=== PATIENT | female | born 1985 | race African-American/Black ===

== ENCOUNTER 2022-08-23 08:43 | Emergency (ER) | payer OTHER, MEDICAID, SELFPAY ==
[2022-08-23] VITALS (7 sets, daily range): BP systolic 113–131; BP diastolic 67–91; PULSE 84–103; RESP 16–18; TEMP 36.8–37.4; O2SAT 100; BMI 26.6
--- NOTE | ~2022-08-23 | US_ITS ---
EXAMINATION: US OBSTETRICAL ULTRASOUND CLINICAL INFORMATION: Abdominal cramping COMPARISON: None available.. LMP: Unknown. Gestational age by maternal dates is . Estimated date of delivery by maternal dates is . TECHNIQUE: First trimester transabdominal OB ultrasound FINDINGS: There is a single intrauterine gestational sac with visible yolk sac, embryo/fetus, and cardiac activity. There is no significant subchorionic hemorrhage or hematoma. HR: 138 beats per minute. CRL (crown rump length): 0.77 cm (6 weeks 5 days +/- 4 days). CALVIN (estimated date of delivery): 04/13/2023 +/- 4 days. MATERNAL ADNEXA: The right maternal ovary not seen. The left maternal ovary measures 2.8 x 2.2 x 1.5 cm. There is a 1 x 1.2 cm left ovarian cyst. There is no significant maternal adnexal mass. No maternal pelvic ascites. US/US OB <= 14 weeks fetus IMPRESSION: 1. Single intrauterine gestation with ultrasound gestational age of 6 weeks 5 days +/- 4 days. 2. Estimated date of delivery is 04/13/2023 +/- 4 days. 3. No maternal adnexal mass or pelvic ascites.
--- NOTE | 2022-08-23 09:02 | ED_ITS ---
HPI - Abdominal Pain General Chief Complaint: Abdominal Pain Stated Complaint: Vomiting/Dizziness Time Seen by Provider: 08/23/22 08:55 Source: patient and old records reviewed Mode of arrival: ambulatory History of Present Illness HPI narrative: 37-year-old female with a past medical history appendectomy, cholecystectomy, presenting to the ED complaining of intermittent lower abdominal cramping, bloating, nausea, nonbloody emesis, and lightheadedness/dizziness x 5 days. Also reports mild headache and sinus pressure. LMP 07/17. Denies fever, chills, diarrhea, suspicious food intake, recent travel, sick contacts, dysuria/hematuria, CP/SOB MD elicited complaint: abdominal pain Related Data Home Medications Medication Instructions Recorded Confirmed ondansetron HCl 4 mg tablet 4 mg PO Q6-8H PRN nausea 08/23/22 08/23/22 Previous Rx's Medication Instructions Recorded doxylamine 10 mg-pyridoxine (vit 1 tab PO BID 10 days #20 tabs 08/23/22 B6) 10 mg tablet,delayed release Allergies Allergy/AdvReac Type Severity Reaction Status Date / Time Penicillins Allergy Hives Verified 08/23/22 08:55 tramadol Allergy Hives Verified 08/23/22 08:55 Review of Systems Review of Systems Constitutional: No Fever, No Chills, No Fatigue, No Malaise ENT/Mouth: No Ear Pain, No sore throat, No Rhinorrhea, No Swallowing Difficulty, +sinus pressure Eyes: No Eye Pain, No Swelling, No Redness, No Vision Changes Cardiovascular: No Chest Pain, No SOB, No Edema, No Palpitations Respiratory: No Cough, No Sputum, No Dyspnea Gastrointestinal: + Nausea, + Vomiting, No Diarrhea, No Constipation, + Abdominal cramping Genitourinary: No irregular bleeding, No Dysuria, No Urinary Frequency, No Hematuria, No Urinary Incontinence/retention, No Flank Pain Musculoskeletal: No joint pain, No Myalgias, No Joint Swelling Skin: No Skin Lesions, No rash Neuro: No Weakness, No Loss of Consciousness, + lightheaded/ Dizziness, + Headache Yes all other systems are reviewed and are negative Constitutional: Reports as per HPI Denies Abnormal speech present PMFSH Past Medical History Attestation statement: The following information was validated with the patient. Social History Social History Alcohol intake: never Smoked in Last 30 Days: No Use of substances other than those prescribed or required for medical reasons: No Advance Directives: No Advance Directives Information Provided: Yes Patient : No Physical Exam ED Vital Signs: Vital Signs - 24 hr 08/23/22 08:55 08/23/22 09:23 08/23/22 09:56 Temperature 98.2 F 99.4 F Pulse Rate 103 H 95 84 Respiratory Rate 18 16 Blood Pressure 129/91 H 131/83 128/83 Pulse Oximetry 100 100 Oxygen Delivery Method Room Air Room Air 08/23/22 09:59 08/23/22 10:01 08/23/22 11:56 Temperature Pulse Rate 90 100 93 Respiratory Rate 18 Blood Pressure 130/83 123/90 H 126/80 Pulse Oximetry 100 Oxygen Delivery Method Room Air 08/23/22 14:42 Temperature 99.2 F Pulse Rate 98 Respiratory Rate 16 Blood Pressure 113/67 Pulse Oximetry 100 Oxygen Delivery Method Room Air BMI result Body Mass Index 26.6 Const General: cooperative, healthy appearing and no acute distress Orientation/consciousness: patient oriented x3 Limitations: no limitations HENMT Head: Yes normal to inspection and Yes atraumatic Ears: hearing grossly normal bilaterally General nose exam: Normal external nose present Face and sinus: Yes normal facial exam Eyes General: appearance normal, both eyes and all related structures EOM: EOMs intact bilaterally Neck Neck: Yes normal visual inspection and Yes no meningeal signs Resp Effort & Inspection: normal respiratory effort and no respiratory distress Auscultation: clear to auscultation bilaterally Cardio Rate: regular rate Heart sounds: S1 normal heart sound present and S2 normal heart sound present GI Inspection: Yes normal to inspection Palpation (GI): Soft to palpation, nontender, no guarding and not rigid General: Yes no CVA tenderness Back/Spine/Pelvis Back: no CVA tenderness Skin Rashes: no rashes Wounds: no wounds Neuro General: patient oriented x3, tone normal, moves all extremities, no meningeal signs, no focal motor deficits and CN's II-XI intact bilaterally Cranial nerves: Yes CN's II-XII intact bilaterally and Yes Bilaterally intact EOM present Cognition (Neuro): normal cognition Speech: No Abnormal speech present Gait exam (Neuro): Normal gait present Motor exam (neuro): 5/5 motor strength present throughout Extrem General: Yes normal to inspection Course Course Course Narrative: -1217--no leukocytosis. Labs otherwise reassuring. Beta quant 58,013 > will obtain OB ultrasound >> patient continues to deny vaginal bleeding/discharge -COVID and influenza negative US OB <= 14 weeks fetus IMPRESSION: 1. Single intrauterine gestation with ultrasound gestational age of? 6 weeks 5 days +/- 4 days. 2. Estimated date of delivery is 04/13/2023 +/- 4 days. 3. No maternal adnexal mass or pelvic ascites. >> results discussed with patient, tolerating p.o. crackers and apple juice in the ED without nausea or vomiting. Has an OBGYN to follow-up with. Results discussed with patient including worrisome signs and symptoms and strict return precautions, and when to return to the emergency department. They verbalized understanding and feel safe for discharge at this time. Medical Decision Making Medical Decision Making MDM Narrative: 37-year-old female with a past medical history appendectomy, cholecystectomy, presenting to the ED complaining of intermittent lower abdominal cramping, bloating, nausea, nonbloody emesis, and lightheadedness/dizziness x 5 days. On exam mildly tachycardic, NAD, nontoxic appearing, abdomen soft/nontender, no focal neuro deficits. Concern for gastroenteritis vs vs metabolic abnormalities. Lower suspicion for ovarian torsion, appendicitis/diverticulitis or SBO Plan: EKG, labs, UA, COVID/flu, IVF, orthostatics Please refer to course for remaining clinical decision making, interpretation of labs/imaging results, and discussions with consultants and/or family members. Differential Diagnosis Differential Diagnoses: The differential diagnosis associated with the presentation includes As above Admission/Observation Consideration of admission/observation: Escalation of care including admission/observation considered Lab Data [facility] Lab Attestation statement: I reviewed the patient's lab results. 08/23/22 09:45 08/23/22 09:45 Labs: Lab Results 08/23/22 08/23/22 08/23/22 Range/Units 09:45 09:45 09:45 WBC 5.2 (4.8-10.8) X10*3/uL RBC 3.96 L (4.20-5.50) X10*6/uL Hgb 12.9 (12.0-16.0) g/dl Hct 37.3 (37.0-47.0) % MCV 94.2 (80.0-98.0) fL MCH 32.6 (27.0-33.0) pg MCHC 34.6 (31.0-35.0) g/dl RDW 14.2 (11.0-16.0) % Plt Count 210 (160-400) X10*3/uL MPV 9.9 (9.4-12.3) fL Immature Gran % (Auto) 0.4 (0.0-0.4) % Neut % (Auto) 69.0 (45-73) % Lymph % (Auto) 20.4 (20-40) % [place] % (Auto) 9.4 (2-11) % Eos % (Auto) 0.4 (0-4) % Baso % (Auto) 0.4 (0-2) % Lymph # (Auto) 1.1 L (1.2-4.9) X10*3/uL [place] # (Auto) 0.5 (0.1-1.2) X10*3/uL Eos # (Auto) 0.0 (0.0-0.4) X10*3/uL Baso # (Auto) 0.0 (0.0-0.2) X10*3/uL Abs Immat Gran (auto) 0.02 (0.00-0.03) X10*3/uL Absolute Neuts (auto) 3.6 (2.0-8.3) x10*3/uL Absolute Nucleated RBC 0.000 (0.0-0.012) X10*3/uL Nucleated RBC % (auto) 0.0 (0.0-0.2) /100WBC Sodium 136 (135-145) mmol/L Potassium 3.8 (3.3-5.1) mmol/L Chloride 106 (96-108) mmol/L Carbon Dioxide 21 L (22-29) mmol/L Anion Gap 13 (12-20) BUN 9 (9-16) mg/dL Creatinine 0.67 (0.5-1.4) mg/dL Estim Creat Clear Calc 124.7 Estimated GFR > 60 Random Glucose 148 H (60-115) mg/dL Calcium 8.7 (8.4-10.2) mg/dL Magnesium 2.0 (1.6-2.6) mg/dL Total Bilirubin 0.9 (0.0-1.0) mg/dL Direct Bilirubin 0.3 (0.0-0.5) mg/dL AST 11 (5-31) U/L ALT 13 (0-31) U/L Alkaline Phosphatase 86 (39-117) U/L Troponin I High Sens < 2.7 (<3.5-17.0) ng/L Total Protein 7.1 (6.5-8.0) g/dL Albumin 3.9 (3.5-5.0) g/dL Lipase 9 (8-78) U/L Beta HCG, Quant 66344 mIU/mL COVID-19 ([place]) (Negative) COVID-19 Clin Com Influenza Type A ([facility]) (Negative) Influenza Type B ([facility]) (Negative) Influenza A & B Note 08/23/22 08/23/22 Range/Units 09:45 09:45 WBC (4.8-10.8) X10*3/uL RBC (4.20-5.50) X10*6/uL Hgb (12.0-16.0) g/dl Hct (37.0-47.0) % MCV (80.0-98.0) fL MCH (27.0-33.0) pg MCHC (31.0-35.0) g/dl RDW (11.0-16.0) % Plt Count (160-400) X10*3/uL MPV (9.4-12.3) fL Immature Gran % (Auto) (0.0-0.4) % Neut % (Auto) (45-73) % Lymph % (Auto) (20-40) % [place] % (Auto) (2-11) % Eos % (Auto) (0-4) % Baso % (Auto) (0-2) % Lymph # (Auto) (1.2-4.9) X10*3/uL [place] # (Auto) (0.1-1.2) X10*3/uL Eos # (Auto) (0.0-0.4) X10*3/uL Baso # (Auto) (0.0-0.2) X10*3/uL Abs Immat Gran (auto) (0.00-0.03) X10*3/uL Absolute Neuts (auto) (2.0-8.3) x10*3/uL Absolute Nucleated RBC (0.0-0.012) X10*3/uL Nucleated RBC % (auto) (0.0-0.2) /100WBC Sodium (135-145) mmol/L Potassium (3.3-5.1) mmol/L Chloride (96-108) mmol/L Carbon Dioxide (22-29) mmol/L Anion Gap (12-20) BUN (9-16) mg/dL Creatinine (0.5-1.4) mg/dL Estim Creat Clear Calc Estimated GFR Random Glucose (60-115) mg/dL Calcium (8.4-10.2) mg/dL Magnesium (1.6-2.6) mg/dL Total Bilirubin (0.0-1.0) mg/dL Direct Bilirubin (0.0-0.5) mg/dL AST (5-31) U/L ALT (0-31) U/L Alkaline Phosphatase (39-117) U/L Troponin I High Sens (<3.5-17.0) ng/L Total Protein (6.5-8.0) g/dL Albumin (3.5-5.0) g/dL Lipase (8-78) U/L Beta HCG, Quant mIU/mL COVID-19 ([place]) Negative (Negative) COVID-19 Clin Com See Note Influenza Type A ([facility]) Negative (Negative) Influenza Type B ([facility]) Negative (Negative) Influenza A & B Note See Note Radiology Impression Discussion of test interpretation with radiology: I have reviewed the [facility] ologist's reading. External Record Review External record reviewed: Inpatient record, Office record, Outpatient record, Prior outpatient labs, Prior outpatient radiology, Primary care record and Outside ED record Medications Administered Discontinued Medications Generic Name Dose Route Start Last Admin Trade Name Freq PRN Reason Stop Dose Admin Famotidine 20 mg 08/23/22 11:45 08/23/22 11:53 Famotidine/Pf 20 Mg/2 Ml Vial IVPUSH 08/23/22 11:46 20 mg ONCE ONE Administration Sodium Chloride 1,000 mls @ 999 mls/hr 08/23/22 09:30 08/23/22 11:53 Ns IV 08/23/22 10:30 Infused .Q1H1M FRANCISCA Infusion Sodium Chloride 1,000 mls @ 999 mls/hr 08/23/22 09:30 08/23/22 13:20 Ns IV 08/23/22 10:30 Infused .Q1H1M FRANCISCA Infusion Ondansetron HCl 4 mg 08/23/22 11:44 08/23/22 11:53 Ondansetron Hcl 4 Mg/2 Ml Vial IVPUSH 08/23/22 11:45 4 mg ONCE ONE Administration Discharge Plan Discharge Clinical Impression: Nausea and vomiting in , Early stage of Patient Disposition: Home, Self-Care Instructions: Nausea and Vomiting in (ED), (ED) Additional Instructions: You are 6 weeks 5 days, your hCG is 58,000 Vitamin B6 will help with nausea/vomiting Please have close follow-up with her OBGYN, you need care, start taking vitamins If you develop abdominal pain, vaginal bleeding/discharge, you are unable to eat or drink return to the emergency department Prescriptions: New doxylamine-pyridoxine (vit B6) 10-10 mg tablet,delayed release (DR/EC) 1 tab PO BID 10 Days Qty: 20 0RF Rx Instructions: Two tablets at bedtime on days 1 and 2; if symptoms persist, take 1 tablet in morning and 2 tablets at bedtime on day 3; if symptoms persist, may further increase to 1 tablet in morning, 1 tablet mid-afternoon, and 2 tablets at bedtime on day 4 (maximum: doxylamine 40 mg/pyridoxine 40 mg [4 tablets] per day). No Action ondansetron HCl 4 mg tablet 4 mg PO Q6-8H PRN (Reason: nausea) Referrals: [facility] [place] [facility] [Provider Group] Interventions: ED Discharge Assessment Last Done: 08/23/22 15:00 Discharge Date/Time: 08/23/22 15:10
--- NOTE | 2022-08-23 09:25 | ECG_ITS ---
Test Reason : lightheaded/weakness Blood Pressure : / mmHG Vent. Rate : 089 BPM Atrial Rate : 089 BPM P-R Int : 156 ms QRS Dur : 074 ms QT Int : 368 ms P-R-T Axes : 049 027 031 degrees QTc Int : 447 ms Poor data quality, interpretation may be adversely affected Normal sinus rhythm Normal ECG No previous ECGs available Referred By: Tatiana Lebron Electronically Signed By:MACEY THOMSON MD
--- NOTE | 2022-08-23 09:49 | PC.NURSE ---
Pt on stretcher, airway open and patent, no obvious signs of distress, no difficulty/labored breathing. A&ox4, skin normal for ethnicity, warm and dry. Lung sounds clr and equal bilaterally. Heart sounds normal. Bowel sounds present all lawson. No edema noted. Pt complaining of flu-like symptoms for the past week. Pt also complaining of lower right quadrant abdominal cramping, rated 3/10. 20G IV inserted in left AC.
[2022-08-23 09:58] LABS: MANUAL DIFF FLAG NO
[2022-08-23 10:02] LABS: Basophils Percent Auto 0.4 % (0-2); Eosinophils Percent Auto 0.4 % (0-4); Hematocrit 37.3 % (37.0-47.0); Hemoglobin 12.9 g/dl (12.0-16.0); Imm Gran Abs Auto 0.02 X10*3/uL (0.00-0.03); Imm Gran Pct Auto 0.4 % (0.0-0.4); Lymphocytes Absolute Auto 1.1 X10*3/uL (1.2-4.9); Lymphocytes Percent Auto 20.4 % (20-40); Mean Corpuscular HGB Conc 34.6 g/dl (31.0-35.0); Mean Corpuscular Hemoglobin 32.6 pg (27.0-33.0); Mean Corpuscular Volume 94.2 fL (80.0-98.0); Mean Platelet Volume 9.9 fL (9.4-12.3); Monocytes Absolute Auto 0.5 X10*3/uL (0.1-1.2); Monocytes Percent Auto 9.4 % (2-11); Neutrophils Absolute Auto 3.6 x10*3/uL (2.0-8.3); Platelet Count 210 X10*3/uL (160-400); Red Blood Count 3.96 X10*6/uL (4.20-5.50); Red Cell Distribution Width 14.2 % (11.0-16.0); White Blood Count 5.2 X10*3/uL (4.8-10.8)
[2022-08-23] MEDS: 0.9 % Sodium Chloride 1,000 ML 999 ML IV ×2 (10:04→11:53)
--- NOTE | 2022-08-23 10:07 | PHA.MEDREC ---
Pharmacy Consult ? Medication Reconciliation Pharmacy has completed the medication reconciliation.
[2022-08-23 10:25] LABS: Troponin-I High Sensitivity < 2.7 ng/L (<3.5-17.0)
[2022-08-23 10:32] LABS: COVID-19 Test Negative (Negative); IDNOW Serial# 55D5AD1C
[2022-08-23 10:33] LABS: IDNOW Serial# BCCEAD1C; Influenza A Negative (Negative); Influenza B2 Negative (Negative)
[2022-08-23 11:40] LABS: Alanine Aminotransferase 13 U/L (0-31); Albumin Level 3.9 g/dL (3.5-5.0); Alkaline Phosphatase 86 U/L (39-117); Anion Gap 13 (12-20); Aspartate Amino Transferase 11 U/L (5-31); Bilirubin Direct 0.3 mg/dL (0.0-0.5); Bilirubin Total 0.9 mg/dL (0.0-1.0); Blood Urea Nitrogen 9 mg/dL (9-16); Calcium 8.7 mg/dL (8.4-10.2); Carbon Dioxide 21 mmol/L (22-29); Chloride 106 mmol/L (96-108); Creatinine Clr Calc Pharmacy 124.7; Estimated Glomerular Filt Rate > 60; Glucose Random 148 mg/dL (60-115); Lipase 9 U/L (8-78); Potassium 3.8 mmol/L (3.3-5.1); Sodium 136 mmol/L (135-145); Total Protein 7.1 g/dL (6.5-8.0)
[2022-08-23] MEDS: Famotidine/PF 20 MG/2 ML VIAL IVPUSH (11:53)
[2022-08-23] MEDS: ondansetron HCL 4 MG/2 ML VIAL IVPUSH (11:53)
== END 2022-08-23 15:10 | disposition home or self-care (01) ==
PROVIDERS: Physician Assistant; Emergency Provider Emergency Medicine
DX: R10.9 Unspecified abdominal pain (principal); R42 Dizziness and giddiness; R25.2 Cramp and spasm; R10.2 Pelvic and perineal pain; R10.30 Lower abdominal pain, unspecified; Z20.822 Contact with and (suspected) exposure to COVID-19; Z20.828 Contact with and (suspected) exposure to other viral communicable diseases; Z79.899 Other long term (current) drug therapy
CPT/HCPCS: 36415; 76801; 80048; 80076; 83690; 83735; 84484; 84702; 85025; 87502; 87635; 93005; 96361; 96374; 96375; 99284; 99285; J2405

== ENCOUNTER 2022-12-30 23:45 | Emergency (ER) | payer OTHER, SELFPAY ==
[2022-12-31 00:29] VITALS: BP 127/91; PULSE 88; RESP 18; TEMP 36.6; O2SAT 99
[2022-12-31 01:29] LABS: IDNOW Serial# 08D9AD1C; Strep A Nucleic Acid Negative (Negative)
[2022-12-31 01:55] LABS: Influenza A PCR NEGATIVE (Negative); Influenza B PCR NEGATIVE (Negative); Resp Syncy Virus RNA Qual PCR NEGATIVE (Negative); SARS COV2 PCR INHOUSE POSITIVE (Negative)
--- NOTE | 2022-12-31 02:00 | ED.GENADULT ---
HPI - General Adult General Chief complaint: General Medical Stated complaint: Congested, difficulty swallowing Time Seen by Provider: 12/31/22 01:53 Source: patient Mode of arrival: ambulatory Limitations: no limitations History of Present Illness HPI narrative: Patient is 6 months been congested with sore throat for last 4 days tested negative for COVID started on antibiotic Cfpodoxime without much improvement slight wheezing speech in the night saturating 99% at room air Related Data Home Medications Medication Instructions Recorded Confirmed ondansetron HCl 4 mg tablet 4 mg PO Q6-8H PRN nausea 08/23/22 08/23/22 Previous Rx's Medication Instructions Recorded doxylamine succinate 25 mg tablet 25 mg PO BEDTIME PRN nausea and 08/24/22 vomiting #10 tabs pyridoxine (vitamin B6) 25 mg 25 mg PO TID PRN nausea and 08/24/22 tablet vomiting #14 tabs polymyxin B sulfate 10,000 1 drp ophthalmic (eye) QID 7 days 09/29/22 unit-trimethoprim 1 mg/mL eye #10 mL drops (Polytrim) benzonatate 200 mg capsule 200 mg PO TID PRN cough #30 caps 12/31/22 dexamethasone 6 mg tablet 6 mg PO DAILY #6 tabs 12/31/22 Allergies Allergy/AdvReac Type Severity Reaction Status Date / Time Penicillins Allergy Hives Verified 08/23/22 08:55 tramadol Allergy Hives Verified 08/23/22 08:55 Review of Systems Review of Systems: Yes all other systems are reviewed and are negative PMFSH Social History Social History Alcohol intake: never Smoked in Last 30 Days: No Use of substances other than those prescribed or required for medical reasons: No Advance Directives: No Advance Directives Information Provided: No Patient : Yes Physical Exam ED Vital Signs: Vital Signs - 24 hr 12/31/22 00:29 Temperature 97.9 F Pulse Rate 88 Respiratory Rate 18 Blood Pressure 127/91 H Pulse Oximetry 99 Oxygen Delivery Method Room Air BMI result Body Mass Index 30.0 Appearance: Alert. Oriented X3. No acute distress. ENT: Pharynx normal. Oral Mucosa moist congested nasal turbinates Neck: Normal inspection. Neck supple. CVS: Normal heart rate and rhythm. Pulses normal. Respiratory: No respiratory distress. Equal air entry bilateral, bilateral prolonged expiration with frequent cough Abdomen: Soft and nontender. Bowel sounds are present, gravid uterus no CVA tenderness Skin: Skin warm and dry. Normal skin color. Normal skin turgor. Extremities: No lower extremity edema. No calf tenderness Neuro: Oriented X 3. Medical Decision Making Medical Decision Making [facility] Narrative: Patient COVID positive lungs are clear otherwise except for wheezing will give Decadron and symptomatic treatment Lab Data [facility] Lab Attestation statement: I reviewed the patient's lab results. Labs: Lab Results 12/31/22 Range/Units 01:08 Influenza Type A (PCR) NEGATIVE (Negative) Influenza Type B (PCR) NEGATIVE (Negative) RSV RNA Qual (PCR) NEGATIVE (Negative) SARS-CoV-2 RNA (RT-PCR) POSITIVE A (Negative) S. pyogenes GrpA [facility] Negative (Negative) Discharge Plan Discharge Clinical Impression: COVID-19 Patient Disposition: Home, Self-Care Instructions: COVID-19 (Coronavirus Disease 2019) (ED) Additional Instructions: Continued cough syrup Decadron daily for 6 days Report to the ER if worsening of shortness of breath Social distancing as advised Prescriptions: New dexamethasone 6 mg tablet 6 mg PO DAILY Qty: 6 0RF benzonatate 200 mg capsule 200 mg PO TID PRN (Reason: cough) Qty: 30 0RF No Action ondansetron HCl 4 mg tablet 4 mg PO Q6-8H PRN (Reason: nausea) pyridoxine (vitamin B6) 25 mg tablet 25 mg PO TID PRN (Reason: nausea and vomiting) Qty: 14 0RF doxylamine succinate 25 mg tablet 25 mg PO BEDTIME PRN (Reason: nausea and vomiting) Qty: 10 0RF polymyxin B sulf-trimethoprim [Polytrim] 10,000 unit- 1 mg/mL drops 1 drp ophthalmic (eye) QID 7 Days Qty: 10 0RF Stand Alone Forms: Work/School Release
[2022-12-31] MEDS: dexAMETHasone 6 MG TABLET PO (02:22)
[2022-12-31] MEDS: guaiFEN/Codeine SF 200/20/10ML 10 ML LIQUID PO (02:22)
== END 2022-12-31 02:25 | disposition home or self-care (01) ==
PROVIDERS: Emergency Provider Internal Medicine; PCP Internal Medicine
DX: U07.1 COVID-19 (principal); J02.9 Acute pharyngitis, unspecified
CPT/HCPCS: 0241U; 87651; 99283; 99284; J8540

== ENCOUNTER 2023-02-08 09:05 | Emergency (ER) | payer OTHER, MEDICAID, SELFPAY ==
[2023-02-08 09:15] VITALS: BP 130/87; PULSE 106; RESP 18; TEMP 36.8; BMI 30.9
--- NOTE | 2023-02-08 09:24 | ED.GENADULT ---
HPI - General Adult General Chief complaint: General Medical Stated complaint: Dizziness/Shaky 31 wks Time Seen by Provider: 02/08/23 09:24 Source: patient, RN notes reviewed and old records reviewed Mode of arrival: ambulatory Limitations: no limitations History of Present Illness HPI narrative: 37 year old female , 31 weeks , presents to the ED today with a complaint of dizziness while taking a shower this morning. Her dizziness worsened upon arriving to work. 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 Endorses associated nausea and generalized weakness. Patient reports N/V almost every day during her and takes Unisom for this, last dose this morning. States that she tries to stay hydrated throughout the day. Reports similar episode back in 2017 where she was standing in a retail store, felt lightheaded, and passed out. There was no diagnosis at that time. She sees her OB every 2 weeks, last appointment last week. No complications. Denies GUZMAN, fever, chills, neck pain, chest pain, shortness of breath, dyspnea, vomiting, abdominal pain, diarrhea/constipation, vaginal bleeding or discharge, dysuria or hematuria. Denies recent travel or long car rides. No history of VTE. Related Data Home Medications Medication Instructions Recorded Confirmed ondansetron HCl 4 mg tablet 4 mg PO Q6-8H PRN nausea 08/23/22 08/23/22 Previous Rx's Medication Instructions Recorded doxylamine succinate 25 mg tablet 25 mg PO BEDTIME PRN nausea and 08/24/22 vomiting #10 tabs pyridoxine (vitamin B6) 25 mg 25 mg PO TID PRN nausea and 08/24/22 tablet vomiting #14 tabs polymyxin B sulfate 10,000 1 drp ophthalmic (eye) QID 7 days 09/29/22 unit-trimethoprim 1 mg/mL eye #10 mL drops (Polytrim) albuterol sulfate 90 mcg/actuation 2 puff inhalation Q4-6H PRN 12/31/22 aerosol inhaler (ProAir HFA) shortness of breath or wheezing #8.5 grams benzonatate 200 mg capsule 200 mg PO TID PRN cough #30 caps 12/31/22 dexamethasone 6 mg tablet 6 mg PO DAILY #6 tabs 12/31/22 Allergies Allergy/AdvReac Type Severity Reaction Status Date / Time Penicillins Allergy Hives Verified 08/23/22 08:55 tramadol Allergy Hives Verified 08/23/22 08:55 Review of Systems Review of Systems: Constitutional: No fever, chills, fatigue, night sweats, weight changes, +generalized weakness ENT/Mouth: No ear pain, hearing loss, nasal congestion, sinus pain, rhinorrhea, sore throat Eyes: No eye pain, swelling, redness, vision changes, discharge Cardio: No chest pain, palpitations, BUTT, orthopnea, peripheral edema Pulm: No SOB, cough, sputum, wheezing, dyspnea, hemoptysis GI: +nausea, No vomiting, hematemesis, abdominal pain, diarrhea, constipation, hematochezia, melena : No irregular bleeding, dysuria, frequency, urgency, hesitancy, hematuria, flank pain, urinary flow changes, urinary incontinence or retention MSK: No back pain, neck pain, joint pain, myalgias Skin: No lesions, rashes Neuro: No weakness, numbness, paresthesias, LOC, + dizziness, headache All other systems reviewed and are negative. [facility] Past Medical History Attestation statement: The following information was validated with the patient. Source: old records reviewed and nursing notes reviewed Social History Social History Alcohol intake: never Smoked in Last 30 Days: No Use of substances other than those prescribed or required for medical reasons: No Advance Directives: No Advance Directives Information Provided: Yes Patient : Yes Physical Exam ED Vital Signs: Vital Signs - 24 hr 02/08/23 09:15 02/08/23 09:28 02/08/23 09:48 Temperature 98.3 F 98.6 F 98.3 F Pulse Rate 106 H 108 H 100 Respiratory Rate 18 16 18 Blood Pressure 130/87 129/93 H 123/83 Pulse Oximetry 97 98 Oxygen Delivery Method Room Air Room Air 02/08/23 10:45 02/08/23 10:45 02/08/23 10:47 Temperature Pulse Rate 81 87 98 Respiratory Rate Blood Pressure 119/80 144/100 H 142/94 H Pulse Oximetry Oxygen Delivery Method 02/08/23 13:56 Temperature 98.3 F Pulse Rate 92 Respiratory Rate 18 Blood Pressure 116/75 Pulse Oximetry 99 Oxygen Delivery Method Room Air BMI result Body Mass Index 30.9 Vital signs are stable. Const General: cooperative, comfortable, no acute distress, alert, awake and anxious; No diaphoretic Orientation/consciousness: patient oriented x3 Limitations: no limitations HENMT Head: Yes normal to inspection Ears: hearing grossly normal bilaterally General nose exam: Normal external nose present Mouth: Normal oral and palatal mucosa present and moist mucous membranes Eyes General: appearance normal, both eyes and all related structures Conjunctivae: conjunctivae normal Sclerae: sclerae normal Pupils: Equal, round and reactive pupils present EOM: EOMs intact bilaterally and No Nystagmus present Neck Neck: Yes normal visual inspection, Yes no lymphadenopathy, Yes no meningeal signs and Yes no JVD Resp Effort & Inspection: normal respiratory effort, able to speak in complete sentences, no respiratory distress and no use of accessory muscles Auscultation: clear to auscultation bilaterally, no crackles, no rales, no rhonchi and no wheezes Cardio Jugular venous distension: no JVD Rate: regular rate Rhythm: regular rhythm Peripheral pulses: radial pulses present, posterior tibial pulses present and dorsalis pedis present GI Inspection: Yes normal to inspection Palpation (GI): Soft to palpation and nontender Other: + fundal height measuring approximately 30 weeks. Skin General skin exam: no rashes or lesions noted and turgor normal Neuro General: patient oriented x3, gait normal, moves all extremities and no meningeal signs Cranial nerves: Yes CN's II-XII intact bilaterally, Yes Equal, round and reactive pupils present and No Nystagmus present Coordination: [id number] test normal, [id number] test normal and Normal rapid alternating movements of the distal upper extremity present (Neuro) Extrem General: Yes normal to inspection, Yes full ROM and Yes no clubbing, cyanosis or edema Course Course Course Narrative: 1115-- CBC without leukocytosis. Patient is anemic, she tells me she is being treated for iron deficiency anemia by her OB. As patient is in her 3rd trimester and hgb is > 11, no intervention warranted at this time. Chemistry without cute abnormalities requiring intervention. Sodium 134. Creatinine wnl. BUN 6 likely secondary to dehydration/ nausea and vomiting > patient receiving IV fluids. Beta-hCG 36409. Orthostatic vital signs negative. > On re-evaluation patient states she is feeling better however still nauseous which has been her baseline through the entirety of her > will administer vitamin B6. 1330- On re-evaluation, patient reports symptom improvement with IVF and vit B6. Patient tells me she is ready to go home. Her labs are unremarkable. She has been administered IV fluids. Orthostatic vital signs are negative. Patient is asymptomatic. Her initial presentation is likely attributable to dehydration vs vasovagal presyncope vs anxiety. I discussed strict return precautions. Advised patient to follow-up with her OB this week. All questions answered at this time. Patient agreeable with disposition and stable for discharge. Medications Administered Discontinued Medications Generic Name Dose Route Start Last Admin Trade Name Freq PRN Reason Stop Dose Admin Sodium Chloride 1,000 mls @ 999 mls/hr 02/08/23 11:15 02/08/23 11:39 Ns IV 02/08/23 12:15 999 mls/hr .Q1H1M FRANCISCA Administration Pyridoxine HCl 25 mg 02/08/23 11:27 02/08/23 13:09 Pyridoxine Hcl (Vitamin B6) 50 Mg Tablet PO 02/08/23 11:28 25 mg ONCE ONE Administration Medical Decision Making Medical Decision Making MDM Narrative: 37 year old female , 31 weeks , presents to the ED today with a complaint of dizziness while taking shower this morning. Vital signs initially notable for tachycardia secondary to anxiety, now normalized. She is afebrile and normotensive. Upon my initial examination patient is anxious regarding her symptoms. After talking to the patient for a couple of minutes she seemed to calm down and began breathing normally. She is now sitting up in bed talking to me and having a normal conversation. No respiratory distress. Nontoxic appearing. Moist mucous membranes. RRR. No JVD. Lungs are clear to auscultation bilaterally. Abdomen is soft, nontender, fundal height measures approximately 30 wks. Exam is nonfocal. Cerebellum is intact. Clinical concern for normal , anxiety/panic attack, dehydration, vasovagal presyncope, orthostatic hypotension, anemia, electrolyte disturbance, vertigo. Presentation not consistent with viral syndrome, preeclampsia, eclampsia, premature rupture of membranes, distress, labor, threat to , CVA/TIA, cerebellar stroke, arrhythmia, ACS, PE. PERC negative. Plan at this time is to obtain basic labs, RH, type and screen, IV fluids, and re-evaluation. Differential Diagnosis Differential Diagnoses: The differential diagnosis associated with the presentation includes As above. Admission/Observation Not indicated. Lab Data MDM Lab Attestation statement: I reviewed the patient's lab results. As above. 02/08/23 10:15 02/08/23 10:14 Labs: Lab Results 02/08/23 02/08/23 02/08/23 Range/Units 10:14 10:15 11:25 WBC 9.8 (4.8-10.8) X10*3/uL RBC 3.43 L (4.20-5.50) X10*6/uL Hgb 11.8 L (12.0-16.0) g/dl Hct 34.0 L (37.0-47.0) % MCV 99.1 H (80.0-98.0) fL MCH 34.4 H (27.0-33.0) pg MCHC 34.7 (31.0-35.0) g/dl RDW 14.0 (11.0-16.0) % Plt Count 226 (160-400) X10*3/uL MPV 10.3 (9.4-12.3) fL Immature Gran % (Auto) 1.3 H (0.0-0.4) % Neut % (Auto) 77.4 H (45-73) % Lymph % (Auto) 14.5 L (20-40) % Miller % (Auto) 5.7 (2-11) % Eos % (Auto) 0.9 (0-4) % Baso % (Auto) 0.2 (0-2) % Lymph # (Auto) 1.4 (1.2-4.9) X10*3/uL Miller # (Auto) 0.6 (0.1-1.2) X10*3/uL Eos # (Auto) 0.1 (0.0-0.4) X10*3/uL Baso # (Auto) 0.0 (0.0-0.2) X10*3/uL Abs Immat Gran (auto) 0.13 H (0.00-0.03) X10*3/uL Absolute Neuts (auto) 7.6 (2.0-8.3) x10*3/uL Absolute Nucleated RBC 0.000 (0.0-0.012) X10*3/uL Nucleated RBC % (auto) 0.0 (0.0-0.2) /100WBC PT 11.2 (11.1-13.3) SEC INR 0.9 (0.9-1.1) Sodium 134 L (135-145) mmol/L Potassium 3.8 (3.3-5.1) mmol/L Chloride 108 (96-108) mmol/L Carbon Dioxide 16 L (22-29) mmol/L Anion Gap 14 (12-20) BUN 6 L (9-16) mg/dL Creatinine 0.59 (0.5-1.4) mg/dL Estim Creat Clear Calc 151.9 Estimated GFR > 60 Random Glucose 93 (60-115) mg/dL Calcium 9.1 (8.4-10.2) mg/dL Magnesium 1.9 (1.6-2.6) mg/dL Total Bilirubin 1.0 (0.0-1.0) mg/dL AST 14 (5-31) U/L ALT 14 (0-31) U/L Alkaline Phosphatase 139 H (39-117) U/L Total Protein 6.9 (6.5-8.0) g/dL Albumin 3.2 L (3.5-5.0) g/dL Lipase 11 (8-78) U/L Beta HCG, Quant 00576 mIU/mL Blood Type O Positive Antibody Screen NEGATIVE 02/08/23 Range/Units Unknown WBC (4.8-10.8) X10*3/uL RBC (4.20-5.50) X10*6/uL Hgb (12.0-16.0) g/dl Hct (37.0-47.0) % MCV (80.0-98.0) fL MCH (27.0-33.0) pg MCHC (31.0-35.0) g/dl RDW (11.0-16.0) % Plt Count (160-400) X10*3/uL MPV (9.4-12.3) fL Immature Gran % (Auto) (0.0-0.4) % Neut % (Auto) (45-73) % Lymph % (Auto) (20-40) % Miller % (Auto) (2-11) % Eos % (Auto) (0-4) % Baso % (Auto) (0-2) % Lymph # (Auto) (1.2-4.9) X10*3/uL Miller # (Auto) (0.1-1.2) X10*3/uL Eos # (Auto) (0.0-0.4) X10*3/uL Baso # (Auto) (0.0-0.2) X10*3/uL Abs Immat Gran (auto) (0.00-0.03) X10*3/uL Absolute Neuts (auto) (2.0-8.3) x10*3/uL Absolute Nucleated RBC (0.0-0.012) X10*3/uL Nucleated RBC % (auto) (0.0-0.2) /100WBC PT (11.1-13.3) SEC INR (0.9-1.1) Sodium (135-145) mmol/L Potassium (3.3-5.1) mmol/L Chloride (96-108) mmol/L Carbon Dioxide (22-29) mmol/L Anion Gap (12-20) BUN (9-16) mg/dL Creatinine (0.5-1.4) mg/dL Estim Creat Clear Calc Estimated GFR Random Glucose (60-115) mg/dL Calcium (8.4-10.2) mg/dL Magnesium (1.6-2.6) mg/dL Total Bilirubin (0.0-1.0) mg/dL AST (5-31) U/L ALT (0-31) U/L Alkaline Phosphatase (39-117) U/L Total Protein (6.5-8.0) g/dL Albumin (3.5-5.0) g/dL Lipase (8-78) U/L Beta HCG, Quant mIU/mL Blood Type Cancelled Antibody Screen Cancelled External Record Review External record reviewed: Inpatient record, Office record, Outpatient record, Prior outpatient labs, Prior outpatient radiology, Primary care record and Outside ED record Prescription Management I considered prescription management with: Other (Antiemetic) Chronic Conditions Patient?s care impacted by: Other () Social Determinants Patient?s care significantly limited by Social Determinants of Health including: Other Social Determinant of Health Critical Care Time Critical Care Time Critical Care Time: No Discharge Plan Discharge Clinical Impression: Vasovagal near syncope, Anxiety, Dehydration during Patient Disposition: Still a Patient Instructions: Near Syncope (ED), Panic Attack (ED) Additional Instructions: Your labs today were within normal limits. Your beta hCG is measuring Your orthostatic vital signs were negative. Your symptoms are most consistent with near syncope due to vasovagal response along with anxiety. Make sure you are eating and drinking adequately during the day. Switch positions slowly to normalize your blood pressure. Take vitamin B6 and Unisom for nausea. Please follow-up with your primary care provider or OB this week. In the case of an emergency call 911. Prescriptions: No Action ondansetron HCl 4 mg tablet 4 mg PO Q6-8H PRN (Reason: nausea) pyridoxine (vitamin B6) 25 mg tablet 25 mg PO TID PRN (Reason: nausea and vomiting) Qty: 14 0RF doxylamine succinate 25 mg tablet 25 mg PO BEDTIME PRN (Reason: nausea and vomiting) Qty: 10 0RF dexamethasone 6 mg tablet 6 mg PO DAILY Qty: 6 0RF benzonatate 200 mg capsule 200 mg PO TID PRN (Reason: cough) Qty: 30 0RF albuterol sulfate [ProAir HFA] 90 mcg/actuation HFA aerosol inhaler 2 puff inhalation Q4-6H PRN (Reason: shortness of breath or wheezing) Qty: 8.5 0RF polymyxin B sulf-trimethoprim [Polytrim] 10,000 unit- 1 mg/mL drops 1 drp ophthalmic (eye) QID 7 Days Qty: 10 0RF Referrals: Samir Ball MD [Primary Care Provider] - Stand Alone Forms: Work/School Release Discharge Date/Time: 02/08/23 14:40
[2023-02-08 09:28] VITALS: BP 129/93; PULSE 108; RESP 16; TEMP 37; O2SAT 97
[2023-02-08 09:48] VITALS: BP 123/83; PULSE 100; RESP 18; TEMP 36.8; O2SAT 98
--- NOTE | 2023-02-08 09:53 | PC.NURSE ---
Patient alert and oriented, patient reports is 31 weeks du e 04/18/23. Patient reports she has been with nausea the entire . Reports woke up this morning and was feeling okay but after taking a shower became dizzy and weak. Patient reports that she came to work and became weaker, dizzy, and lightheaded. BS 107. NSR on monitor. VSS
[2023-02-08 10:19] LABS: MANUAL DIFF FLAG NO
[2023-02-08 10:22] LABS: Basophils Percent Auto 0.2 % (0-2); Eosinophils Absolute Auto 0.1 X10*3/uL (0.0-0.4); Eosinophils Percent Auto 0.9 % (0-4); Hemoglobin 11.8 g/dl (12.0-16.0); Imm Gran Abs Auto 0.13 X10*3/uL (0.00-0.03); Imm Gran Pct Auto 1.3 % (0.0-0.4); Lymphocytes Absolute Auto 1.4 X10*3/uL (1.2-4.9); Lymphocytes Percent Auto 14.5 % (20-40); Mean Corpuscular HGB Conc 34.7 g/dl (31.0-35.0); Mean Corpuscular Hemoglobin 34.4 pg (27.0-33.0); Mean Corpuscular Volume 99.1 fL (80.0-98.0); Mean Platelet Volume 10.3 fL (9.4-12.3); Monocytes Absolute Auto 0.6 X10*3/uL (0.1-1.2); Monocytes Percent Auto 5.7 % (2-11); Neutrophils Absolute Auto 7.6 x10*3/uL (2.0-8.3); Neutrophils Percent Auto 77.4 % (45-73); Platelet Count 226 X10*3/uL (160-400); Red Blood Count 3.43 X10*6/uL (4.20-5.50); White Blood Count 9.8 X10*3/uL (4.8-10.8)
[2023-02-08 10:33] LABS: Alanine Aminotransferase 14 U/L (0-31); Albumin Level 3.2 g/dL (3.5-5.0); Alkaline Phosphatase 139 U/L (39-117); Anion Gap 14 (12-20); Aspartate Amino Transferase 14 U/L (5-31); Blood Urea Nitrogen 6 mg/dL (9-16); Calcium 9.1 mg/dL (8.4-10.2); Carbon Dioxide 16 mmol/L (22-29); Chloride 108 mmol/L (96-108); Creatinine Clr Calc Pharmacy 151.9; Estimated Glomerular Filt Rate > 60; Glucose Random 93 mg/dL (60-115); Lipase 11 U/L (8-78); Magnesium 1.9 mg/dL (1.6-2.6); Potassium 3.8 mmol/L (3.3-5.1); Sodium 134 mmol/L (135-145); Total Protein 6.9 g/dL (6.5-8.0)
[2023-02-08 10:45] VITALS: BP 119/80; BP 144/100; PULSE 81; PULSE 87
[2023-02-08 10:47] VITALS: BP 142/94; PULSE 98
[2023-02-08 10:56] LABS: HCG Quantitative 34525 mIU/mL
[2023-02-08 11:38] LABS: INTERNATIONAL NORM RATIO 0.9 (0.9-1.1); Prothrombin Time 11.2 SEC (11.1-13.3)
[2023-02-08] MEDS: 0.9 % Sodium Chloride 1,000 ML 999 ML IV (11:39)
[2023-02-08] MEDS: Pyridoxine HCl (Vitamin B6) 50 MG TABLET 25 MG PO (13:09)
--- NOTE | 2023-02-08 13:11 | PC.NURSE ---
Alert and oriented. NSR on monitor, denies pain or discomfort. Medicated per mar
--- NOTE | 2023-02-08 13:34 | PC.NURSE ---
Discharge plan reviewed with patient who verbalized understanding, patient to be discharged after completion of IV fluids
[2023-02-08 13:56] VITALS: BP 116/75; PULSE 92; RESP 18; TEMP 36.8; O2SAT 99
--- NOTE | 2023-02-08 14:40 | PC.NURSE ---
Patient reports feeling much better after completion of if fluids. Patient denies dizziness or lightheadedness
[2023-02-09 06:45] LABS: Glucose, Whole Blood 107 mg/dL (60-115)
== END 2023-02-08 14:40 | disposition still patient (30) ==
PROVIDERS: Physician Assistant Medical; Emergency Provider Emergency Medicine Emergency Medical Services; PCP Internal Medicine
DX: O26.893 Other specified pregnancy related conditions, third trimester (principal); R55 Syncope and collapse; E86.0 Dehydration; O99.343 Other mental disorders complicating pregnancy, third trimester; F41.9 Anxiety disorder, unspecified; Z3A.31 31 weeks gestation of pregnancy
CPT/HCPCS: 36415; 80053; 82947; 83690; 83735; 84702; 85025; 85610; 86850; 86900; 86901; 99283; 99284